=== PATIENT | male | born 1950 | race Caucasian/White ===

== ENCOUNTER 2016-09-25 20:03 | Emergency (ER) | payer OTHER ==
[~2016-09-25] VITALS: Ht 193 cm; Wt 111.1 kg
[2016-09-25] MEDS ORDERED: XARELTO10 MG PO (20:23)
[2016-09-25] MEDS ORDERED: NORCO 5-325 TA1 EACH PO (22:27)
== END 2016-09-25 23:00 | disposition home or self-care (01) ==
LOC: ED 20:03
DX: T15.92XA Foreign body on external eye, part unspecified, left eye, initial encounter (principal); H10.9 Unspecified conjunctivitis; Z79.899 Other long term (current) drug therapy
CPT/HCPCS: 99283